=== PATIENT | male | born 1975 | race African-American/Black ===

== ENCOUNTER 2022-08-15 08:12 | Emergency (ER) | payer OTHER ==
[~2022-08-15] VITALS: Ht 177.8 cm; Wt 83.9 kg
--- NOTE | 2022-08-15 08:51 | NUR ---
46 years old male presen ts to er c/o coughing blood, report feeling weak, sweats at night denies cp, no sob.
[2022-08-15] MEDS ORDERED: IV NORMAL SALINE 500 ML BAG IV ONE (09:15)
[2022-08-15 09:30] LABS: HEMATOCRIT 46.4 % (36.7-47.1); MEAN CORPUSCULAR VOLUME 91.5 fL (73.0-96.2); PLATELET COUNT (AUTO) 164 K/uL (152-348)
[2022-08-15 09:31] LABS: NEUTROPHILS % (MANUAL) 0 % (42-75)
[2022-08-15 09:41] LABS: CREATININE 1.2 mg/dL (0.6-1.3)
[2022-08-15 09:54] LABS: BILIRUBIN,TOTAL 0.8 mg/dL (0.2-1.0)
[2022-08-15] MEDS ORDERED: DEXT30SU PO (10:37)
[2022-08-15] MEDS ORDERED: BENZ-13 PO (10:37)
[2022-08-15 11:26] VITALS: BP 140/80
--- NOTE | 2022-08-15 11:28 | NUR ---
patient reassess condition stable d/c home with instructions after care reviewed understood left er via self ambulatory with steady gait no pain.
== END 2022-08-15 11:41 | disposition home or self-care (01) ==
LOC: ER 08:12
DX: U07.1 COVID-19 (principal); R06.02 Shortness of breath
CPT/HCPCS: 99284; 96360; 71045; 87426; 87804 ×2; 80053; 83880; 85025; 84484; 36415; 85007; J7040 ×2; 70030-TC; A4663

== ENCOUNTER 2023-03-06 04:45 | Emergency (ER) | payer OTHER ==
[~2023-03-06] VITALS: Ht 152.4 cm; Wt 83.9 kg
[~2023-03-06 04:45] MED LIST: BENZ-13 PO; DEXT30SU PO
[2023-03-06 04:47] VITALS: O2SAT 98
[2023-03-06] MEDS ORDERED: TRAM50TA2 PO (04:58)
[2023-03-06] MEDS ORDERED: LORAZEPAM 2 MG/1 ML VIAL IV ONE (06:00)
[2023-03-06] MEDS ORDERED: LORAZEPAM 2 MG/1 ML VIAL ONE (06:09)
[2023-03-06 06:38] LABS: BASOPHILS % (AUTO) 0.7 % (0.0-2.0); EOSINOPHILS % (AUTO) 0.3 % (0.0-7.0); HEMATOCRIT 43.6 % (36.7-47.1); LYMPHOCYTES # (AUTO) 1.7 K/uL (0.8-4.8); LYMPHOCYTES % (AUTO) 30.5 % (20.5-51.5); MEAN CORPUSCULAR HEMOGLOBIN 31.1 uug (23.8-33.4); MEAN CORPUSCULAR HGB CONC 34 g/dL (32.5-36.3); MEAN CORPUSCULAR VOLUME 90.4 fL (73.0-96.2); MONOCYTES # (AUTO) 0.4 K/uL (0.1-1.30); NEUTROPHILS # (AUTO) 3.5 K/uL (1.8-8.9); NEUTROPHILS % (AUTO) 61.5 % (38.5-71.5); PLATELET COUNT (AUTO) 190 K/uL (152-348); RED BLOOD CELL COUNT(AUTO) 4.82 MIL/uL (4.06-5.63); RED CELL DISTRIBUTION WIDTH 13.5 % (12.1-16.2); WHITE BLOOD COUNT (AUTO) 5.6 K/uL (3.6-10.2)
[2023-03-06 06:50] LABS: CALCIUM 8.7 mg/dL (8.5-10.1); CARBON DIOXIDE 29 mmol/L (21-32); CHLORIDE 102 mmol/L (98-107); CREATININE 1.2 mg/dL (0.6-1.3); GLUCOSE 117 mg/dL (74-106); POTASSIUM 3.1 mmol/L (3.5-5.1); SODIUM SERUM 140 mmol/L (136-145); UREA NITROGEN, BLOOD 5 mg/dL (7-18)
[2023-03-06 06:53] LABS: DIFFERENTIAL COMMENT 1
[2023-03-06 06:59] LABS: ALANINE AMINOTRANSFERASE 31 U/L (16-63); ALBUMIN 4.2 g/dL (3.4-5.0); ALKALINE PHOSPHATASE 54 U/L (50-136); ASPARTATE AMINOTRANSFERASE 15 U/L (15-37); BILIRUBIN,DIRECT 0.2 mg/dL (0.0-0.2); BILIRUBIN,TOTAL 0.5 mg/dL (0.2-1.0); TOTAL PROTEIN, SERUM 7.6 g/dL (6.4-8.2)
== END 2023-03-06 08:29 | disposition home or self-care (01) ==
LOC: ER 04:55
DX: R00.0 Tachycardia, unspecified (principal); Z79.899 Other long term (current) drug therapy
CPT/HCPCS: 99285; 96374; 70450; 71045; 80076; 80048; 85025; 85379; 84484; 36415; 93005; J2060; A4663